=== PATIENT | female | born 1980 | race Caucasian/White ===

== ENCOUNTER 2025-04-10 10:53 | Emergency (ER) | payer OTHER, SELFPAY ==
--- NOTE | ~2025-04-10 | CT_ITS ---
EXAMINATION: CT CERVICAL SPINE WITHOUT CONTRAST CLINICAL INFORMATION: fall, +head strike COMPARISON: None available. TECHNIQUE: CT of the cervical spine was obtained without administration of intravenous contrast. Images were reconstructed in axial, coronal and sagittal planes This CT examination was performed using dose optimization techniques as appropriate, variously including the following: *Automated exposure control *Adjustment of mA and/or kV according to patient size (this includes techniques or standardized protocols for targeted exams where dose is matched to indication/reason for exam; i.e. extremities or head) *Use of iterative reconstruction technique FINDINGS: Images were obtained down to C6-C7 level. Alignment: Straightening of the cervical lordosis. No subluxation. Vertebrae: Vertebral bodies and posterior elements are intact. Small marginal osteophytes at C5-C6. Intervertebral disc spaces: Mild loss of height of C5-C6 disc space. Craniovertebral junction: Normal alignment. No fracture. Soft tissues: Prevertebral and posterior paraspinal soft tissues are unremarkable. Other findings: No incidental concerning findings. Level by level analysis: No severe spinal canal or neuroforaminal stenosis.. CT/CT cervical spine wo IV con IMPRESSION: No acute fracture or subluxation. Note that the lowest included level is C6-C7. If there is clinical concern below this level, additional images will have to be obtained. Fleischner guidelines were followed. Electronically signed by: Francisco Javier Bruce MD 04/10/2025 12:10 PM [facility]
--- NOTE | ~2025-04-10 | CT_ITS ---
EXAMINATION: CT FACIAL BONES WITHOUT CONTRAST CLINICAL INFORMATION: Left-sided orbital pain, injury. COMPARISON: None available. TECHNIQUE: Spiral CT imaging of the maxillofacial bones and mandible performed in axial plane without contrast. Multiplanar reformatted images were constructed from the axial data set. This CT examination was performed using dose optimization techniques as appropriate, variously including the following: *Automated exposure control *Adjustment of mA and/or kV according to patient size (this includes techniques or standardized protocols for targeted exams where dose is matched to indication/reason for exam; i.e. extremities or head) *Use of iterative reconstruction technique FINDINGS: There is mild motion degradation, this limits the sensitivity of the exam. CT MAXILLOFACIAL BONES: The mandible is intact without fracture. The TM joints are normally oriented. There are mild to moderate degenerative changes in the right TM joint. The nasal bones, nasal process, maxilla, orbits, zygomatic arches, pterygoid plates, and sphenoid bone are intact without fracture. Right nasal septal deviation with associated rightward spurring. Paranasal sinuses are normally pneumatized throughout. No paranasal sinus fractures. The mastoids and tympanic cavities are normally aerated. Imaged maxillofacial/neck soft tissues appear normal. CT/CT facial bones wo IV con IMPRESSION: No definite fracture of the mandible or maxillofacial bones. The orbits are intact. Electronically signed by: Geremias Mondragon MD 04/10/2025 12:02 PM [facility]
--- NOTE | ~2025-04-10 | CT_ITS ---
EXAMINATION: CT HEAD WITHOUT IV CONTRAST HISTORY: fall, head strike. TECHNIQUE: Unenhanced helical CT of the head was performed per standard departmental protocol. Coronal and sagittal reformats of the head were also evaluated. One or more of the following techniques was used for dose reduction: Automated exposure control, adjustment of the mA and/or kV according to patient size, use of iterative reconstruction technique. DLP: 620 mGy-cm COMPARISON: There are no prior studies available for comparison. FINDINGS: BRAIN: The brain parenchyma is unremarkable. There is normal montesinos/white differentiation. The ventricular system is normal in size and configuration. There is no mass effect or midline shift. No intra- or extra-axial fluid collections are identified. SINUSES: The visualized paranasal sinuses are clear. The mastoid air cells and middle ear cavities are well pneumatized. ORBITS: The visualized orbits are unremarkable. BONES/SOFT TISSUES: The extracranial soft tissues are unremarkable. The calvarium is intact. No suspicious lytic or sclerotic lesions. CT/CT head/brain wo IV con IMPRESSION: Unremarkable unenhanced head CT. Electronically signed by: Robbin Villarreal MD 04/10/2025 11:59 AM [facility]
[2025-04-10 10:58] VITALS: BP 136/89; PULSE 84; O2SAT 99
--- NOTE | 2025-04-10 10:58 | ED_ITS ---
HPI - Fall General Chief Complaint: Wound/Laceration Stated Complaint: SLIP/NO FALL ON ICE,1INCH L EYEBROW LAC Time Seen by Provider: 04/10/25 13:01 Source: patient Mode of arrival: ambulatory Limitations: no limitations History of Present Illness ED Provider: Dr. Chisholm HPI Narrative: 45-year-old female presented hospital today after a fall. Patient stated that she was taking her trash bin out when she slipped on ice and fell and hit her head on the ground. She sustained a laceration to the left eyebrow. He is complaining of left cheek pain. No loss of consciousness. Related Data Allergies Allergy/AdvReac Type Severity Reaction Status Date / Time Penicillins (PCN) Allergy Mild RASH Unverified 04/10/25 11:03 penicillin V Allergy Unknown rash Verified 04/10/25 11:03 Review of Systems Review of Systems: Pertinent review of systems as mentioned in HPI. All other system otherwise negative. [facility] Past Medical History [facility] Narrative: None Physical Exam Exam: Exam: General: Pleasant, no distress, interacting appropriately Head: Normacephalic, atraumatic ENT: oral mucosa moist, neck supple, no tracheal deviation, laceration over the left eyebrow. Approximately 3.5 cm in size. Respiratory: Does not appear to be in respiratory distress Extremities: No obvious deformity Neurological: Awake and alert, no facial droop noted Skin: Warm and dry Psychiatric: Appropriate mood and thoughts Vital Signs: Vital Signs: Last Vital Signs Temp 98 F 04/10/25 11:00 Pulse 87 04/10/25 11:00 Resp 16 04/10/25 11:00 BP 144/84 H 04/10/25 11:00 Pulse Ox 100 04/10/25 11:00 O2 Del Method Room Air 04/10/25 11:00 BMI result Body Mass Index 23.6 Course Course Course Narrative: This is an RME: Additional HPI, ROS, PE not included below will be deferred to primary provider. RME assessment and note performed by: Rosenda Handy PA-C This is a [id number]-female, with no known medical problems, who presents to the ER with complaints of head injury s/p slip and fall on ice. Pt is alert, oriented. No focal deficits on exam. Pt with 2cm laceration noted to left eyebrow. Plan: CT head/neck/facial bones, wound repair Medications Administered Discontinued Medications Generic Name Dose Route Start Last Admin Trade Name Lawanda PRN Reason Stop Dose Admin Diphtheria/Tetanus/Acell Pertussis 0.5 ml 04/10/25 11:03 04/10/25 13:09 Diphth,Pertus(Acell),Tet Adult 0.5 Ml Syringe IM 04/10/25 11:04 0.5 ml .ONCE ONE Administration Medical Decision Making Medical Decision Making MDM Narrative: 45-year-old female presented hospital today for evaluation of a fall. Sustaining a left eyebrow laceration. CT head CT face CT C-spine was negative for any signs of acute injury. Tetanus shot updated I repaired the patient's laceration. A total of 5 simple interrupted stitches was used. Six 0 Prolene was used for this repaired. Infection precautions given to the patient. Encouraged removal of the stitches in 5 days. Patient agrees and understands this plan all questions were addressed. Differential Diagnosis Differential Diagnoses: The differential diagnosis associated with the presentation includes Laceration, closed head injury Independent Interpretation I performed an independent interpretation of an: CT Scan Radiology Impression Discussion of test interpretation with radiology: I have reviewed the radiologist's reading. Discharge Plan Discharge Clinical Impression: Laceration Patient Disposition: Home, Self-Care Instructions: Care For Your Stitches (ED) Additional Instructions: You may go to urgent care or PCP or return to ED for sutures removal. 5 stitches were placed. apply sunscreen over the laceration as it heals. Print Language: Ivorian
[2025-04-10 11:00] VITALS: BP 144/84; PULSE 87; RESP 16; TEMP 36.6; O2SAT 100; BMI 23.6
[2025-04-10] MEDS: Diphth,Pertus(ACell),Tet Adult 0.5 ML SYRINGE IM (13:09)
--- NOTE | 2025-04-10 13:16 | PC.NURSE ---
pt medcated per MAR
[2025-04-10 14:04] VITALS: BP 134/74; PULSE 84; RESP 14; TEMP 36.8; O2SAT 100
[2025-04-10 14:05] VITALS: BP 134/74; PULSE 84; RESP 14; TEMP 36.8; O2SAT 100
--- OUTSIDE RECORDS SUMMARY | 2025-04-10 21:11 | XMS_ITS | Clinical Summary ---
Author Organization [facility] Address [address] [place] [address] Phone Care Team Providers Care Stamp Analyst Name Role Phone Unknown, Unknown Primary Care Provider Mariama ribeiro Social History Tobacco Use Types Packs/Day Years Used Date Smoking Tobacco: Never Assessed Education Answer Date Recorded Are you interested in more education? Not on chanelle e 08/26/2022 Are you concerned about learning? Not on file 08/26/2022 No 08/26/2022 No 08/26/2022 Digital Access Answer Date Recorded No 09/26/2022 No 09/26/2022 No 09/26/2022 Reliable internet access at home? Not on file 09/26/2022 Device with a working camera? Not on file Comments Unknown Sex and Gender Information Value Date Recorded Sex Assigned at Not on file Legal Sex Female 9:19 PM EDT Gender Identity Not on file Sexual Orientation Not on file Plan of Treatment Not on file Medical Devices Not on file Insurance [facility] QU[employer] QUALITY [facility] [place] [address] QUALITY LIMITED NT[employer] HMO [facility] [employer] HMO Care Teams Stamp Analyst Relationship Specialty Start Date End Date Unknown, Unknown, PCP - General 08/14/18 Additional Source Comments The information contained in this document represents components of the legal health record. It is not the complete legal health record.[facility]
--- OUTSIDE RECORDS SUMMARY | 2025-04-10 21:11 | XMS_ITS | Encounter Summary ---
Author Organization [facility] Address [address] [place] [id number] Phone Care Team Providers Care Magnesium Mill Operator Name Role Phone Unknown, Unknown Primary Care Provider Mariama ribeiro Encounter Details Date Type Department Care Team (Latest Contact Info) Description 05/18/2023 Transcribe Orders Virtual Department [address] [place], [place] [id number] Vilma Kc NP [address] [place] [id number] Breast screening (Primary Dx) Social History Tobacco Use Types Packs/Day Years [...] on file Sexual Orientation Not on file documented as of this encounter Plan of Treatment Not on file documented as of this encounter Visit Diagnoses Diagnosis Breast screening- Primary Breast screening, unspecified documented in this encounter Care Teams Magnesium Mill Operator Relationship Specialty Start Date End Date Unknown, Unknown, PCP - General 08/14/18 documented as of this encounter Additional Source Comments The information contained in this document represents components of the legal health record. It is not the complete legal health record.[facility]
== END 2025-04-10 14:11 | disposition home or self-care (01) ==
PROVIDERS: Emergency Provider Student in an Organized Health Care Education/Training Program
DX: S01.112A Laceration without foreign body of left eyelid and periocular area, initial encounter (principal); R51.9 Headache, unspecified; M54.2 Cervicalgia; W01.0XXA Fall on same level from slipping, tripping and stumbling without subsequent striking against object, initial encounter; Y93.9 Activity, unspecified; Y92.9 Unspecified place or not applicable; Y99.8 Other external cause status; Z23 Encounter for immunization
CPT/HCPCS: 12001; 70450; 70486; 72125; 90471; 90715; 99284

== ENCOUNTER → 2025-04-10 10:59 | Outpatient (BNV) | payer BC, SELFPAY | PROVIDERS: Visit Provider Radiology Body Imaging | DX: S09.90XA Unspecified injury of head, initial encounter (principal); Z04.3 Encounter for examination and observation following other accident; H57.12 Ocular pain, left eye | CPT/HCPCS: 70450; 70486; 72125 ==